=== PATIENT | female | born 1975 | race African-American/Black ===

== ENCOUNTER 2017-01-02 15:04 | Observation (INO) | payer OTHER ==
[~2017-01-02] VITALS: Ht 162.6 cm; Wt 110.0 kg
[~2017-01-02 15:04] MED LIST: HYDR25TA5 PO; LISI-519 PO; MULT-120 PO; OXYC1CAP PO; PANT40TA3 PO; ZOFR4TAB PO
[2017-01-02 15:08] VITALS: BP 149/93; PULSE 89; RESP 15; TEMP 98.6; O2SAT 98
--- NOTE | 2017-01-02 15:26 | PD ---
HPI . Vertigo Chief Complaint: Dizziness Time Seen by Provider: 15:21 Travel History International Travel<30 days: No Contact w/Intl Traveler<30days: No History of Present Illness HPI Patient presents with the acute onset of vertigo associated with vomiting. She states that it is exacerbated by any sort of movement. She reports a positive previous similar history that is been several years ago. She has not taken anything for it prior to arrival. PFSH Past Medical History Anemia: Yes ("IV INFUSIONS EVERY FRIDAY") Arthritis: Yes Blood Disorders: No Heart Rhythm Problems: No Cancer: No Cardiac Catheterization: No Cardiovascular Problems: Yes (HX PERICARDITIS) High Cholesterol: No Congestive Heart Failure: No Diabetes: No Diminished Hearing: No Endocrine: No Gastrointestinal Disorders: Yes (reflux) GERD: Yes Glaucoma: No Genitourinary: No Hepatitis: No Hiatal Hernia: Yes (REPAIRED) Herniated Disk: Yes (L5-S1) Hypertension: Yes Immune Disorder: No Implanted Vascular Access Dvce: Yes Musculoskeletal: Yes (LUMBAR herniated disc, RIGHT KNEE MENISCUS) Neurologic: Yes (migraines) Psychiatric: No Reproductive: No Respiratory: No Immunizations Current: Yes Migraines: Yes Thyroid Disease: No : 1 Para: 1 Ovarian Cysts: Yes Past Surgical History Abdominal Surgery: Yes (GASTRIC SLEEVE) AICD: No Body Medical Devices: CHEST CLAMPS 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) Section: Yes Coronary Artery Bypass Graft: No Endocrine Surgery: No Gynecologic Surgery: Yes ( ) Joint Replacement: No Pacemaker: No Thoracic Surgery: Yes (MEDIASTINAL TUMOR EXCISION) Other Surgery: Yes (MEDIASTINAL TUMOR REMOVAL) Social History Alcohol Use: No Tobacco Use: No Substance Use: No Allergies-Medications (Allergen,Severity, Reaction): Coded Allergies: *MDRO Multi-Drug Resistant Organism (Verified Allergy, Unknown, 10/15/16) MRSA Wound 09/2008 Lactose (Verified Adverse Reaction, Severe, Nausea/Vomiting, 01/02/17) Compazine (Verified Adverse Reaction, Intermediate, DISORIENTED, 10/15/16) Lortab (Verified Adverse Reaction, Intermediate, ITCHING NAUSEA, 10/15/16) Reported Meds & Prescriptions Reported Meds & Active Scripts Active Reported Hydrochlorothiazide 25 Mg Tab 25 Mg PO BID Lisinopril 5 Mg Tab 5 Mg PO DAILY Review of Systems Except as stated in HPI: all other systems reviewed are Neg Eyes: No: Blurred Vision HENT: Positive: Vertigo, No: Headaches Gastrointestinal: Positive: Nausea, Vomiting Physical Exam Narrative GENERAL: Awake and alert. She is sitting very still. SKIN: Warm and dry. CARDIOVASCULAR: Regular rate and rhythm. RESPIRATORY: No accessory muscle use. MUSCULOSKELETAL: No obvious deformities. No edema. NEUROLOGICAL: Awake and alert. No obvious cranial nerve deficits. Motor grossly within normal limits. Normal speech. PSYCHIATRIC: Appropriate mood and affect; insight and judgment normal. Data Data Last Documented VS Vital Signs Date Time Temp Pulse Resp B/P Pulse Ox O2 Delivery O2 Flow Rate FiO2 01/02/17 15:35 17 98 Room Air 01/02/17 15:26 01/02/17 15:08 98.6 89 Orders Lorazepam Inj (Ativan Inj) (01/02/17 15:30) [facility] Medical Decision Making Medical Screen Exam Complete: Yes Emergency Medical Condition: Yes Medical Record Reviewed: Yes (her main medical issue has been hypertension.) Differential Diagnosis Differential diagnosis of dizziness includes but is not limited to vertigo, dehydration, acute blood loss, sepsis, ACS Narrative Course Patient presents with a straightforward history of vertigo stated with nausea and vomiting. She is allergic to Compazine. I have ordered Ativan. Symptoms have improved with Ativan. She has had no further emesis since being treated with Ativan. Diagnosis Primary Impression: Vertigo Patient Instructions: Benign Paroxysmal Positional Vertigo (DC), General Instructions Scripts Meclizine 25 Mg Tab25 Mg PO TID PRN (VERTIGO) #30 TAB Ref 0 Prov:Ana Cristina Wilson MD 01/02/17 Disposition: 01 DISCHARGE HOME Condition: Stable Ana Cristina Wilson MD Jan 02, 2017 15:26
[2017-01-02] MEDS ORDERED: LORazepam 2 MG/ML VIAL IV PUSH ONE (15:30)
[2017-01-02] MEDS ORDERED: MECL-62 PO (16:09)
[2017-01-02] MEDS ORDERED: MECLIZINE HCL 25 MG TAB PO ONE (17:30)
[2017-01-02] MEDS ORDERED: SODIUM CHLOR 0.9% 1000 ML INJ 1,000 ML IV ONE (17:30)
[2017-01-02] MEDS ORDERED: ONDANSETRON HCL 4 MG/2 ML VIAL IV PUSH ONE (17:30)
[2017-01-02 18:01] LABS: AUTOMATED NEUTROPHIL # 8.9 TH/MM3 (1.8-7.7); BASOPHIL % 0.4 % (0.0-2.0); EOSINOPHIL % 0.3 % (0.0-4.0); HEMATOCRIT 35.2 % (35.0-46.0); HEMO FLAGS DIFF FINAL; LYMPH % 11.7 % (9.0-44.0); LYMPHOCYTE # 1.2 TH/MM3 (1.0-4.8); MEAN CELL VOLUME 87.9 FL (80.0-100.0); MEAN CORPUSCULAR HEMOGLOBIN 29.3 PG (27.0-34.0); MEAN CORPUSCULAR HGB CONC 33.4 % (32.0-36.0); MONO % 4.4 % (0.0-8.0); NEUT % 83.2 % (16.0-70.0); PLATELET COUNT 287 TH/MM3 (150-450); RED CELL DISTRIBUTION WIDTH 15.9 % (11.6-17.2); WHITE BLOOD COUNT 10.6 TH/MM3 (4.0-11.0)
--- NOTE | 2017-01-02 18:17 | RADRPT ---
EXAM DATE/TIME: 01/02/2017 18:09 [place] COMPARISON: CT BRAIN W/O CONTRAST, August 13, 2016, 22:52. INDICATIONS : Dizziness today. Nausea and vomiting, RADIATION DOSE: 42.64 CTDIvol (mGy) MEDICAL HISTORY : Hypertension. Cardiovascular disease SURGICAL HISTORY : None. ENCOUNTER: Initial ACUITY: 1 day PAIN SCALE: 0/10 LOCATION: cranial TECHNIQUE: Multiple contiguous axial images were obtained of the head. Using automated exposure control and adj ustment of the mA and/or kV according to patient size, radiation dose was kept as low as reasonably a chievable to obtain optimal diagnostic quality images. FINDINGS: CEREBRUM: The ventricles are normal for age. No evidence of midline shift, mass lesion, hemorrhage or acute in farction. No extra-axial fluid collections are seen. POSTERIOR FOSSA: The cerebellum and brainstem are intact. The 4th ventricle is midline. The cerebellopontine angle i s unremarkable. EXTRACRANIAL: The visualized portion of the orbits is intact. SKULL: The calvaria is intact. No evidence of skull fracture. CONCLUSION: Negative noncontrast head CT. Alvin Ortega MD on January 02, 2017 at 18:15 Board Certified Radiologist. This report was verified electronically.
[2017-01-02 18:31] LABS: ALKALINE PHOSPHATASE 37 U/L (45-117); ALT (GPT) 23 U/L (10-53); ANION GAP 9 MEQ/L (5-15); AST (GOT) 30 U/L (15-37); BICARBONATE 26.4 MEQ/L (21.0-32.0); BLOOD UREA NITROGEN 16 MG/DL (7-18); CHLORIDE 104 MEQ/L (98-107); GLOMERULAR FILTRATION RATE 73 ML/MIN (>89); POTASSIUM 4.4 MEQ/L (3.5-5.1); SODIUM (NA) 139 MEQ/L (136-145); TOTAL BILIRUBIN ADULT 0.3 MG/DL (0.2-1.0)
--- NOTE | 2017-01-02 18:39 | PD ---
Data Data Last Documented VS Vital Signs Date Time Temp Pulse Resp B/P Pulse Ox O2 Delivery O2 Flow Rate FiO2 01/02/17 15:35 17 98 Room Air 01/02/17 15:26 01/02/17 15:08 98.6 89 Orders Lorazepam Inj (Ativan Inj) (01/02/17 15:30) Complete Blood Count With Diff (01/02/17 17:25) Comprehensive Metabolic Panel (01/02/17 17:25) Meclizine (Antivert) (01/02/17 17:30) ^ Insert Iv (01/02/17 17:25) Sodium Chlor 0.9% 1000 Ml Inj (Ns 1000 M (01/02/17 17:30) Ondansetron Inj (Zofran Inj) (01/02/17 17:30) Ct Brain W/O Iv Contrast(Rout) (01/02/17 ) Labs Laboratory Tests Test 01/02/17 17:50 White Blood Count 10.6 TH/MM3 Red Blood Count 4.00 MIL/MM3 Hemoglobin 11.7 GM/DL Hematocrit 35.2 % Mean Corpuscular Volume 87.9 FL Mean Corpuscular Hemoglobin 29.3 PG Mean Corpuscular Hemoglobin 33.4 % Concent Red Cell Distribution Width 15.9 % Platelet Count 287 TH/MM3 Mean Platelet Volume 8.1 FL Neutrophils (%) (Auto) 83.2 % Lymphocytes (%) (Auto) 11.7 % Monocytes (%) (Auto) 4.4 % Eosinophils (%) (Auto) 0.3 % Basophils (%) (Auto) 0.4 % Neutrophils # (Auto) 8.9 TH/MM3 Lymphocytes # (Auto) 1.2 TH/MM3 Monocytes # (Auto) 0.5 TH/MM3 Eosinophils # (Auto) 0.0 TH/MM3 Basophils # (Auto) 0.0 TH/MM3 CBC Comment DIFF FINAL Differential Comment Sodium Level 139 MEQ/L Potassium Level 4.4 MEQ/L Chloride Level 104 MEQ/L Carbon Dioxide Level 26.4 MEQ/L Anion Gap 9 MEQ/L Blood Urea Nitrogen 16 MG/DL Creatinine 1.01 MG/DL Estimat Glomerular Filtration 73 ML/MIN Rate Random Glucose 99 MG/DL Calcium Level 8.4 MG/DL Total Bilirubin 0.3 MG/DL Aspartate Amino Transf 30 U/L (AST/SGOT) Alanine Aminotransferase 23 U/L (ALT/SGPT) Alkaline Phosphatase 37 U/L Total Protein 7.8 GM/DL Albumin 3.6 GM/DL MDM Supervised Visit with YOSEPH: No Narrative Course The patient was up for discharge but was unable to sit up without dry heaving. I went to assess the patient. At rest she has horizontal nystagmus. I don't appreciate any ataxia although she has difficulty cooperating with exam because she has limited ability to keep her eyes open due to severe vertigo. She was given meclizine and Zofran as well as IV hydration. She had already received IV Ativan. She was given a liter of IV hydration and labs were obtained as well as a CT head which was reassuring. I reassessed the patient and she was unable to stand and walk with difficulty getting to a bedside commode. I think the patient requires observation for symptomatic control. I suspect this is peripheral vertigo however if her nystagmus doesn't resolve she may require further neuroimaging. Diagnosis Primary Impression: Vertigo Admitting Information Admitting Physician Requests: Observation Patient Instructions: General Instructions, Benign Paroxysmal Positional Vertigo (DC) Departure Forms: Tests/Procedures Scripts Meclizine 25 Mg Tab25 Mg PO TID PRN (VERTIGO) #30 TAB Ref 0 Prov:Ana Cristina Wilson MD 01/02/17 Disposition: 01 DISCHARGE HOME Condition: Stable Lydia Booker MD Jan 02, 2017 18:39
[2017-01-02 19:07] VITALS: BP 145/80; PULSE 94; RESP 16; O2SAT 99
[2017-01-02] MEDS ORDERED: FAMOTIDINE 20 MG TAB PO ONE (20:15)
[2017-01-02] MEDS ORDERED: RANITIDINE HCL 150 MG TAB PO ONE (20:15)
--- NOTE | 2017-01-02 20:38 | HHI.HP ---
HPI Service [facility] Hospitalists Primary Care Physician Dmitri Wheeler MD, PhD Admission Diagnosis vertigo Chief Complaint: Dizziness, nausea, vomiting, inability to ambulate Travel History International Travel<30 Days: No Contact w/Intl Traveler <30 Da: No Traveled to Known Affected Are: No History of Present Illness 41-year-old Afro-[place] female with hypertension and history of positional vertigo well-known to me from outpatient care presents to the ER via ambulance secondary to significant intractable vertigo which started this morning. She reports that around 8 AM she had a brief episode of vertigo when she was leaving her home but was able to rest and go to work. Around noon she noted that return of vertigo and nearly fell at a local supermarket requiring a bystander to hold her up and support her from falling. She was again able to rest and around 12:30 started having significant intractable vertigo with nausea and vomiting and inability to ambulate independently. She was thus brought to the ER for further evaluation. She was given Antivert, Ativan, IV fluids and Zofran. She was still significantly dizzy to the point that she could not ambulate independently. It was therefore deemed appropriate that she be brought in for observation status for symptom control. It is noted she's had significant vertigo before. CT brain and lab work are reassuring at this point. It is noted the patient took 40 mg of furosemide this morning from a friend due to some lower extremity edema. It is noted but likely somewhat unrelated the patient has had slight vaginal discharge since October when she received IUD placement. She is involved in a new sexual relationship since August 2016 and is reportedly been treated twice for possible bacterial vaginosis during that time. Denies fevers or chills. Denies head trauma. Review of Systems Constitutional: COMPLAINS OF: Fatigue, Dizziness, DENIES: Diaphoretic episodes , Fever, Weight gain, Weight loss, Chills, Change in appetite, Night Sweats Endocrine: DENIES: Abnorml menstrual pattern, Heat/cold intolerance, Polydipsia , Polyuria, Polyphagia Eyes: COMPLAINS OF: Blurred vision, DENIES: Diplopia, Eye inflammation, Eye pain, Vision loss, Photosensitivity, Double Vision Ears, nose, mouth, throat: DENIES: Tinnitus, Hearing loss, Vertigo, Nasal discharge, Oral lesions, Throat pain, Hoarseness, Ear Pain, Running Nose, Epistaxis, Sinus Pain, Toothache, Odynophagia Respiratory: DENIES: Apneas, Cough, Snoring, Wheezing, Hemoptysis, Sputum production, Shortness of breath Cardiovascular: DENIES: Chest pain, Palpitations, Syncope, Dyspnea on Exertion , PND, Lower Extremity Edema, Orthopnea, Claudication Gastrointestinal: COMPLAINS OF: Nausea, Vomiting, DENIES: Abdominal pain, Black stools, Bloody stools, BRB per rectum, Constipation, Diarrhea, GERD, Reflux, Difficulty Swallowing, Anorexia, See HPI Genitourinary: COMPLAINS OF: Vaginal discharge, DENIES: Abnormal vaginal bleeding, Dysmenorrhea, Dyspareunia, Sexual dysfunction, Urinary frequency, Urinary incontinence, Urgency, Hematuria, Dysuria, Nocturia Integumentary: DENIES: Abnormal pigmentation, Pruritus, Rash, Nail changes, Breast masses, Breast skin changes, Nipple discharge Hematologic/lymphatic: DENIES: Bruising, Lymphadenopathy Immunologic/allergic: DENIES: Eczema, Urticaria Neurologic: COMPLAINS OF: Abnormal gait, Poor Balance Psychiatric: COMPLAINS OF: Anxiety Past Family Social History Past Medical History Benign positional vertigo Hypertension Hyperlipidemia Iron deficiency anemia requiring IV iron infusion Leukopenia Obesity B12 and vitamin D deficiency status post bariatric procedure Past Surgical History Laparoscopic gastric sleeve in 2012 Left knee arthroscopy September 2016 with meniscectomy Mediastinum myotomy with teratoma removal approximately 1998 Reported Medications Hydrochlorothiazide 25 mg 1-2 pills per day Lisinopril 5 mg twice a day Pantoprazole 40 mg daily Vitamin D 1000 units a day He took an additional furosemide 40 mg once this morning from a friend due to lower extremity edema Allergies: Coded Allergies: *MDRO Multi-Drug Resistant Organism (Verified Allergy, Unknown, 10/15/16) MRSA Wound 09/2008 Lactose (Verified Adverse Reaction, Severe, Nausea/Vomiting, 01/02/17) Compazine (Verified Adverse Reaction, Intermediate, DISORIENTED, 10/15/16) Lortab (Verified Adverse Reaction, Intermediate, ITCHING NAUSEA, 10/15/16) Family History Family history of coronary artery disease, diabetes, hypertension and lung cancer Father at age 53 of a heart attack Social History Single No tobacco [place] no regular alcohol use Denies illicit drug use 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 She arouses to voice and recognizes me. She is alert and oriented and cooperative to the best of her ability. She does note significant dizziness when she opens her eyes for any prolonged period. SKIN: No rashes, ecchymoses or lesions. Cool and dry. HEAD: Atraumatic. Normocephalic. No temporal or scalp tenderness. EYES: Pupils equal round and reactive. Extraocular motions intact with some noted horizontal and rotatory nystagmus. No scleral icterus. No injection or drainage. ENT: Nose without bleeding, purulent drainage or septal hematoma. Throat without erythema, tonsillar hypertrophy or exudate. Airway patent. NECK: Trachea midline. No JVD or lymphadenopathy. Supple, nontender, no meningeal signs. CARDIOVASCULAR: Regular rate and rhythm without murmurs, gallops, or rubs. RESPIRATORY: Clear to auscultation. Breath sounds equal bilaterally. No wheezes , rales, or rhonchi. GASTROINTESTINAL: Abdomen soft, non-tender, nondistended. No hepato-splenomegaly , or palpable masses. No guarding. MUSCULOSKELETAL: Extremities without clubbing, cyanosis, or edema. No joint tenderness, effusion, or edema noted. No calf tenderness. Moves all extremities well and to command. NEUROLOGICAL: Somewhat lethargic. Difficult to do complete neuro exam given her somewhat sedated state. Finger to nose was normal. Nystagmus as noted above. Could not ambulate about the room just sitting up in the bed caused significant vertigo. Five out of 5 muscle strength in all muscle groups. Normal speech. Laboratory Laboratory Tests Test 01/02/17 17:50 White Blood Count 10.6 Red Blood Count 4.00 Hemoglobin 11.7 Hematocrit 35.2 Mean Corpuscular Volume 87.9 Mean Corpuscular Hemoglobin 29.3 Mean Corpuscular Hemoglobin 33.4 Concent Red Cell Distribution Width 15.9 Platelet Count 287 Mean Platelet Volume 8.1 Neutrophils (%) (Auto) 83.2 Lymphocytes (%) (Auto) 11.7 Monocytes (%) (Auto) 4.4 Eosinophils (%) (Auto) 0.3 Basophils (%) (Auto) 0.4 Neutrophils # (Auto) 8.9 Lymphocytes # (Auto) 1.2 Monocytes # (Auto) 0.5 Eosinophils # (Auto) 0.0 Basophils # (Auto) 0.0 CBC Comment DIFF FINAL Differential Comment Sodium Level 139 Potassium Level 4.4 Chloride Level 104 Carbon Dioxide Level 26.4 Anion Gap 9 Blood Urea Nitrogen 16 Creatinine 1.01 Estimat Glomerular Filtration 73 Rate Random Glucose 99 Calcium Level 8.4 Total Bilirubin 0.3 Aspartate Amino Transf 30 (AST/SGOT) Alanine Aminotransferase 23 (ALT/SGPT) Alkaline Phosphatase 37 Total Protein 7.8 Albumin 3.6 Result Diagram: 01/02/17 17501/02/17 1750 Imaging Last [address] 01/02/17 0000 Signed Impressions: Service Date/Time: December 18:09 - CONCLUSION: Negative noncontrast head CT. Alvin Ortega MD Assessment and Plan Problem List: (1) Vertigo Status: Acute Plan: No significant central findings on exam. Patient appears to be stabilizing somewhat but still has significant vertigo. We'll get physical therapy for vestibular rehabilitation tomorrow. We'll provide benzodiazepine, meclizine, antinausea medication and IV fluids. Hopefully discharge home tomorrow. (2) Gait disturbance Status: Acute Plan: As noted above. Gait had been normal until the significant vertiginous symptoms. (3) Nausea Status: Acute Plan: Provide medication as noted (4) Hypertension Status: Chronic Plan: Blood pressure relatively well controlled at this point. We'll hold medication for now. It is noted that she took an extra furosemide this morning. Code Status Full Discussed Condition With Patient and ER healthcare provider appear Problem Qualifiers (1) Hypertension: Qualified Code: I10 - Essential hypertension Dmitri Wheeler MD PhD Jan 02, 2017 20:38
[2017-01-02] MEDS ORDERED: SODIUM CHLOR 0.9% 1000 ML INJ 1,000 ML IV SCH (20:45)
[2017-01-02] MEDS ORDERED: LORazepam 2 MG/ML VIAL IV PUSH PRN (20:45)
[2017-01-02] MEDS ORDERED: MECLIZINE HCL 25 MG TAB PO PRN (20:45)
[2017-01-02] MEDS ORDERED: ONDANSETRON HCL 4 MG/2 ML VIAL IV PUSH PRN (20:45)
[2017-01-02 23:00] VITALS: BP 129/72; PULSE 85; RESP 16; O2SAT 99
[2017-01-03 00:33] VITALS: BP 136/78; PULSE 84; RESP 21; TEMP 98; O2SAT 98
[2017-01-03 01:04] VITALS: PULSE 90
[2017-01-03 08:18] VITALS: BP 126/94; PULSE 78; RESP 18; TEMP 96.8; O2SAT 97
[2017-01-03] MEDS: MECLIZINE HCL 25 MG TAB PO SCH ×2 (09:31→13:00)
[2017-01-03] MEDS ORDERED: MECL-62 PO ×2 (10:10→12:26)
--- NOTE | 2017-01-03 10:10 | HHI.PR ---
Subjective Remarks Pt reports that the dizziness is getting better. She was able to get out of bed to the bedside commode this morning without much difficulty. She had just one dose of Antivert last night. Denies any further vomiting since last night. Pt is anxious for discharge later today because she is supposed to be flying to [place] tomorrow. Objective Vitals Vital Signs Date Time Temp Pulse Resp B/P Pulse Ox O2 Delivery O2 Flow Rate FiO2 01/03/17 08:18 96.8 78 18 126/94 97 01/03/17 01:04 90 01/03/17 00:33 98.0 84 21 136/78 98 01/02/17 23:00 85 16 129/72 99 Room Air 01/02/17 19:07 94 16 145/80 99 Room Air 01/02/17 15:35 17 98 Room Air 01/02/17 15:26 01/02/17 15:08 98.6 89 15 149/93 98 01/02/17 01/02/17 01/03/17 15:00 23:00 07:00 Intake Total 932 ml Balance 932 ml Intake IV Total 932 ml # Voids 1 Result Diagram: 01/02/17 1750 01/02/17 1750 Other Results Laboratory Tests Test 01/02/17 17:50 White Blood Count 10.6 TH/MM3 Red Blood Count 4.00 MIL/MM3 Hemoglobin 11.7 GM/DL Hematocrit 35.2 % Mean Corpuscular Volume 87.9 FL Mean Corpuscular Hemoglobin 29.3 PG Mean Corpuscular Hemoglobin 33.4 % Concent Red Cell Distribution Width 15.9 % Platelet Count 287 TH/MM3 Mean Platelet Volume 8.1 FL Neutrophils (%) (Auto) 83.2 % Lymphocytes (%) (Auto) 11.7 % Monocytes (%) (Auto) 4.4 % Eosinophils (%) (Auto) 0.3 % Basophils (%) (Auto) 0.4 % Neutrophils # (Auto) 8.9 TH/MM3 Lymphocytes # (Auto) 1.2 TH/MM3 Monocytes # (Auto) 0.5 TH/MM3 Eosinophils # (Auto) 0.0 TH/MM3 Basophils # (Auto) 0.0 TH/MM3 CBC Comment DIFF FINAL Differential Comment Sodium Level 139 MEQ/L Potassium Level 4.4 MEQ/L Chloride Level 104 MEQ/L Carbon Dioxide Level 26.4 MEQ/L Anion Gap 9 MEQ/L Blood Urea Nitrogen 16 MG/DL Creatinine 1.01 MG/DL Estimat Glomerular Filtration 73 ML/MIN Rate Random Glucose 99 MG/DL Calcium Level 8.4 MG/DL Total Bilirubin 0.3 MG/DL Aspartate Amino Transf 30 U/L (AST/SGOT) Alanine Aminotransferase 23 U/L (ALT/SGPT) Alkaline Phosphatase 37 U/L Total Protein 7.8 GM/DL Albumin 3.6 GM/DL Imaging Last [address] 01/02/17 0000 Signed Impressions: Service Date/Time: , January 02, 2017 18:09 - CONCLUSION: Negative noncontrast head CT. Alvin Ortega MD Objective Remarks General: NAD, AAOx3 Chest: CTA Cardiac: Regular Abd: +BS, soft ND/NT Ext: No edema A/P Problem List: (1) Vertigo Status: Acute Plan: - Pt admitted with acute onset of vertigo. - She has had no significant central findings on exam. - Patient appears to be improving with one dose of Antivert last night. - We will schedule the Antivert today and have PT evaluate - Pt may benefit from vestibular rehabilitation as an outpt as they do not provide those services in the hospital. - Cont. antiemetics PRN - IVF - Advance diet as tolerated today - Anticipate discharge to home this afternoon. (2) Gait disturbance Status: Acute Plan: - As noted above. Gait had been normal until the significant vertiginous symptoms. (3) Nausea Status: Acute Plan: - As above. (4) Hypertension Status: Chronic Plan: - Blood pressure relatively well controlled at this point. - Hold Lisinopril for now. - Pt reports that she had been off of her HCTZ and Lisinopril since last weekend because she forgot her pills at a friends house in [place] but they the prescriptions were being mailed to her and should be at her house today. - It is noted that she took a dose of her [id number] furosemide yesterday morning for LE swelling but was having dizziness prior to taking this. Assessment and Plan Patient examined. Assessment and plan formulated with Nicolette Hernandez PA-C. I agree with the above. Pt developed bpv sx's then later took some lasix for swelling on legs. She has hx bpv. had nystagmus on exam last night. advance diet/schedule meclizine. ambulate then d/c home today. Problem Qualifiers (1) Hypertension: Qualified Code: I10 - Essential hypertension Nicolette Hernandez Jan 03, 2017 10:10 Tommy Meyer MD Jan 03, 2017 12:23
--- NOTE | 2017-01-03 10:16 | HHI.DCPOC ---
Discharge Care Plan Diagnosis: (1) Vertigo (2) Hypertension (3) Nausea (4) Gait disturbance (5) Headache Goals to Promote Your Health * To prevent worsening of your condition and complications * To maintain your health at the optimal level Directions to Meet Your Goals Take your medications as prescribed Follow your dietary instruction Follow activity as directed Keep your appointments as scheduled Take your immunizations and boosters as scheduled If your symptoms worsen call your PCP, if no PCP go to Urgent Care Center or Emergency Room Smoking is Dangerous to Your Health. Avoid second hand smoke Call the 24-hour hour crisis hotline for domestic abuse at Nicolette Hernandez Jan 03, 2017 10:16
[2017-01-03 11:44] VITALS: BP 148/95; PULSE 75; RESP 18; O2SAT 95
== END 2017-01-03 15:39 | disposition home or self-care (01) ==
LOC: NEPA 15:04 → NEDA 18:46 → NEDH 22:46 → NEPHCDU 01-03 00:14
PROVIDERS: ADMIT Hospitalist; ATTEND Hospitalist
DX: R42 Dizziness and giddiness (principal); I10 Essential (primary) hypertension; E78.5 Hyperlipidemia, unspecified; E55.9 Vitamin D deficiency, unspecified; E53.8 Deficiency of other specified B group vitamins; R26.9 Unspecified abnormalities of gait and mobility; R11.0 Nausea; E66.9 Obesity, unspecified; Z98.84 Bariatric surgery status; Z68.41 Body mass index [BMI] 40.0-44.9, adult
CPT/HCPCS: 70450; 80053; 85025; 96361; 96374; 96375; G0378; G8987-GP; G8988-GP; J2060; J2405; J7030

== ENCOUNTER 2017-05-29 23:57 | Emergency (ER) | payer OTHER ==
[~2017-05-29] VITALS: Ht 165.1 cm; Wt 119.6 kg
[~2017-05-29 23:57] MED LIST changes: +MECL-62 PO; -MULT-120 PO; -OXYC1CAP PO; -PANT40TA3 PO; -ZOFR4TAB PO
[2017-05-29 23:59] VITALS: BP 182/103; PULSE 87; RESP 16; TEMP 97.8; O2SAT 99
[2017-05-30 00:45] VITALS: BP_SYST 153; BP_SYST 157; BP_DIAS 73; BP_DIAS 91; PULSE 76; RESP 20; O2SAT 100
[2017-05-30] MEDS ORDERED: KETOROLAC TROMETHAMINE 30 MG/ML (IVP) VIAL IV PUSH ONE (00:45)
[2017-05-30] MEDS ORDERED: ONDANSETRON HCL 4 MG/2 ML VIAL IV PUSH ONE (00:45)
[2017-05-30] MEDS ORDERED: HYDROmorphone HCL PF 1 MG/ML VIAL IV PUSH ONE ×2 (00:45→04:15)
[2017-05-30 00:47] LABS: AUTOMATED NEUTROPHIL # 7.7 TH/MM3 (1.8-7.7); BASOPHIL % 0.3 % (0.0-2.0); EOSINOPHIL # 0.1 TH/MM3 (0-0.4); EOSINOPHIL % 0.9 % (0.0-4.0); HEMATOCRIT 36.6 % (35.0-46.0); HEMO FLAGS DIFF FINAL; LYMPH % 17.4 % (9.0-44.0); LYMPHOCYTE # 1.8 TH/MM3 (1.0-4.8); MEAN CELL VOLUME 84.7 FL (80.0-100.0); MEAN CORPUSCULAR HEMOGLOBIN 28.3 PG (27.0-34.0); MEAN CORPUSCULAR HGB CONC 33.4 % (32.0-36.0); MONO % 6.3 % (0.0-8.0); NEUT % 75.1 % (16.0-70.0); PLATELET COUNT 287 TH/MM3 (150-450); RED BLOOD COUNT 4.32 MIL/MM3 (4.00-5.30); RED CELL DISTRIBUTION WIDTH 14.3 % (11.6-17.2); WHITE BLOOD COUNT 10.2 TH/MM3 (4.0-11.0)
[2017-05-30 00:55] LABS: CHLORIDE 103 MEQ/L (98-107); POTASSIUM 3.6 MEQ/L (3.5-5.1); SODIUM (NA) 136 MEQ/L (136-145)
[2017-05-30] MEDS: SODIUM CHLORIDE 0.9% FLUSH 10 ML FLUSH IVF PRN ×2 (00:57→04:28)
[2017-05-30 00:58] LABS: ANION GAP 6 MEQ/L (5-15); BICARBONATE 27.1 MEQ/L (21.0-32.0); BLOOD UREA NITROGEN 17 MG/DL (7-18); MAGNESIUM 1.9 MG/DL (1.5-2.5)
[2017-05-30 01:00] LABS: APTT (PATIENT) 29.4 SEC (24.3-30.1); INTERNATIONAL NORMALIZED RATIO 0.9 RATIO; PROTHROMBIN TIME - PATIENT 9.9 SEC (9.8-11.6)
[2017-05-30 01:01] LABS: GLOMERULAR FILTRATION RATE 83 ML/MIN (>89)
[2017-05-30 01:10] LABS: CREATINE KINASE 87 U/L (26-192)
--- NOTE | 2017-05-30 01:32 | PD ---
HPI Chief Complaint: Pain: Acute or Chronic Time Seen by Provider: 00:38 Travel History International Travel<30 days: No Contact w/Intl Traveler<30days: No Traveled to known affect area: No History of Present Illness HPI 41 year-old female presents to the emergency department for complaint of severe neck pain that she regards as excruciating. Patient states that pain is left- sided and radiates into the head. Patient denies any visual disturbance or visual loss. Patient has history of headache but states that this is not typical. Patient denies upper or lower extremity numbness tingling or weakness. There has been no bladder or bowel dysfunction. No saddle anesthesia. No gait disturbance. No change in mentation. No speech disturbance. No facial droop. Patient has developed indigestion and heartburn since onset of left posterior neck pain. Patient denies any specific exercise injury or manipulation prior to onset of symptoms. The patient rates pain 10 over 10 in intensity. Patient was seen in the emergency department at [facility] earlier today and given prescription for ibuprofen and muscle relaxant without relief. Patient states that x-ray of the neck was performed revealed no acute bony abnormality. Patient's had no recent febrile illness or respiratory illness. Patient reports that any type of movement increases pain but that even without movement she has severe left-sided pain. Patient has history of hypertension but only takes HCTZ has been off antihypertensive medication since significant weight loss after having a gastric sleeve procedure performed. 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; family history of premature onset heart disease and father; no tobacco use; nursing notes reviewed Anemia: Yes Arthritis: Yes Blood Disorders: No Heart Rhythm Problems: No Cancer: No Cardiac Catheterization: No Cardiovascular Problems: Yes (HX PERICARDITIS) High Cholesterol: No Chemotherapy: No Congestive Heart Failure: No Diabetes: No Diminished Hearing: No Endocrine: No Gastrointestinal Disorders: Yes (REFLUX, GASTRITIS) GERD: Yes Glaucoma: No Genitourinary: No Hepatitis: No Hiatal Hernia: Yes (REPAIRED) Heparin Induced Thrombocytopen: No Herniated Disk: Yes (L5-S1) Hypertension: Yes Immune Disorder: No Implanted Vascular Access Dvce: Yes Medical other: Yes (DDD,KERTICONUS BILATERAL EYES) Musculoskeletal: Yes (LUMBAR herniated disc, RIGHT KNEE MENISCUS) Neurologic: Yes Psychiatric: No Reproductive: No Respiratory: No Immunizations Current: Yes Migraines: Yes Radiation Therapy: No Thyroid Disease: No Tetanus Vaccination: Unknown ?: Unknown : 1 Para: 1 Ovarian Cysts: Yes Past Surgical History Abdominal Surgery: Yes (GASTRIC SLEEVE) AICD: No Body Medical Devices: CHEST CLAMPS 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) Section: Yes Coronary Artery Bypass Graft: No Endocrine Surgery: No Gynecologic Surgery: Yes ( ) Joint Replacement: No Pacemaker: No Thoracic Surgery: Yes (MEDIASTINAL TUMOR EXCISION) Other Surgery: Yes (MEDIASTINAL TUMOR REMOVAL) Family History Family Myocardial Infarction: Yes Social History Alcohol Use: No Tobacco Use: No Substance Use: No Allergies-Medications (Allergen,Severity, Reaction): Coded Allergies: *MDRO Multi-Drug Resistant Organism (Verified Allergy, Unknown, 10/15/16) MRSA Wound 09/2008 Lactose (Verified Adverse Reaction, Severe, Nausea/Vomiting, 01/02/17) Compazine (Verified Adverse Reaction, Intermediate, DISORIENTED, 10/15/16) Lortab (Verified Adverse Reaction, Intermediate, ITCHING NAUSEA, 10/15/16) Reported Meds & Prescriptions Reported Meds & Active Scripts Active Reported Meloxicam 15 Mg Tab 15 Mg PO DAILY Ibuprofen 600 Mg Tab 600 Mg PO Q6H PRN Hydrochlorothiazide 25 Mg Tab 25 Mg PO BID Review of Systems Except as stated in HPI: all other systems reviewed are Neg General / Constitutional: No: Fever, Chills Eyes: No: Diploplia, Blurred Vision, Photophobia HENT: Positive: Headaches, Neck Stiffness, Neck Pain Cardiovascular: No: Chest Pain or Discomfort Respiratory: No: Shortness of Breath Gastrointestinal: Positive: Indigestion, No: Nausea, Vomiting, Abdominal Pain Genitourinary: No: Flank Pain Musculoskeletal: Positive: Limited ROM, No: Myalgias, Arthralgias Skin: No Rash (neck) Neurologic: Positive: Headache, No: Weakness, Dizziness, Syncope, Focal Abnormalities, Coordination Problem Psychiatric: Positive: Anxiety Endocrine: No: Heat Intolerance Hematologic/Lymphatic: No: Easy Bruising Physical Exam Narrative GENERAL: Well-developed well-nourished female in obvious discomfort and appears in distress secondary to pain but no respiratory distress; GCS 15 SKIN: Warm and dry. HEAD: Atraumatic. Normocephalic. EYES: Pupils equal and round. No scleral icterus. No injection or drainage. ENT: No nasal bleeding or discharge. Mucous membranes pink and moist. NECK: Trachea midline. No JVD. Patient with out range of motion of the neck secondary to severe left-sided neck pain without induration erythema increased warmth fluctuance or mass tenderness to palpation along the left paracervical musculature and at the base of the skull. No tenderness to direct palpation along the cervical spine. No left-sided postauricular mass or tenderness to palpation CARDIOVASCULAR: Regular rate and rhythm. RESPIRATORY: No accessory muscle use. Clear to auscultation. Breath sounds equal bilaterally. GASTROINTESTINAL: Abdomen soft, non-tender, nondistended. Hepatic and splenic margins not palpable. MUSCULOSKELETAL: Extremities without clubbing, cyanosis, or edema. No obvious deformities. NEUROLOGICAL: Awake and alert. No obvious cranial nerve deficits. Motor grossly within normal limits. Five out of 5 muscle strength in the arms and legs. Normal speech. PSYCHIATRIC: Appropriate mood and affect; insight and judgment normal. Data Data Last Documented VS Vital Signs Date Time Temp Pulse Resp B/P Pulse Ox O2 Delivery O2 Flow Rate FiO2 05/30/17 02:00 76 20 147/76 98 05/30/17 00:45 Room Air 05/29/17 23:59 97.8 Orders Electrocardiogram (05/30/17 00:38) Basic Metabolic Panel (Bmp) (05/30/17 00:38) Ckmb (Isoenzyme) Profile (05/30/17 00:38) Complete Blood Count With Diff (05/30/17 00:38) Magnesium (Mg) (05/30/17 00:38) Prothrombin Time / Inr (Pt) (05/30/17 00:38) Act Partial Throm Time (Ptt) (05/30/17 00:38) Troponin I (05/30/17 00:38) Chest, Single Ap (05/30/17 00:38) Ecg Monitoring (05/30/17 00:38) Bilateral Bp Monitoring (05/30/17 00:38) Iv Access Insert/Monitor (05/30/17 00:38) Oximetry (05/30/17 00:38) Oxygen Administration (05/30/17 00:38) Sodium Chloride 0.9% Flush (Ns Flush) (05/30/17 00:45) Ketorolac Inj (Toradol Inj) (05/30/17 00:45) Ondansetron Inj (Zofran Inj) (05/30/17 00:45) Hydromorphone Pf Inj (Dilaudid Pf Inj) (05/30/17 00:45) Cta Neck W Iv Contrast W 3d (05/30/17 ) Ed Urine Pregnancytest Poc (05/30/17 01:43) Iohexol 350 Inj (Omnipaque 350 Inj) (05/30/17 03:10) Dexamethasone Inj (Decadron Inj) (05/30/17 04:15) Hydromorphone Pf Inj (Dilaudid Pf Inj) (05/30/17 04:15) Labs Laboratory Tests Test 05/30/17 00:40 White Blood Count 10.2 TH/MM3 Red Blood Count 4.32 MIL/MM3 Hemoglobin 12.2 GM/DL Hematocrit 36.6 % Mean Corpuscular Volume 84.7 FL Mean Corpuscular Hemoglobin 28.3 PG Mean Corpuscular Hemoglobin 33.4 % Concent Red Cell Distribution Width 14.3 % Platelet Count 287 TH/MM3 Mean Platelet Volume 7.7 FL Neutrophils (%) (Auto) 75.1 % Lymphocytes (%) (Auto) 17.4 % Monocytes (%) (Auto) 6.3 % Eosinophils (%) (Auto) 0.9 % Basophils (%) (Auto) 0.3 % Neutrophils # (Auto) 7.7 TH/MM3 Lymphocytes # (Auto) 1.8 TH/MM3 Monocytes # (Auto) 0.6 TH/MM3 Eosinophils # (Auto) 0.1 TH/MM3 Basophils # (Auto) 0.0 TH/MM3 CBC Comment DIFF FINAL Differential Comment Prothrombin Time 9.9 SEC Prothromb Time International 0.9 RATIO Ratio Activated Partial 29.4 SEC Thromboplast Time Sodium Level 136 MEQ/L Potassium Level 3.6 MEQ/L Chloride Level 103 MEQ/L Carbon Dioxide Level 27.1 MEQ/L Anion Gap 6 MEQ/L Blood Urea Nitrogen 17 MG/DL Creatinine 0.90 MG/DL Estimat Glomerular Filtration 83 ML/MIN Rate Random Glucose 91 MG/DL Calcium Level 8.8 MG/DL Magnesium Level 1.9 MG/DL Total Creatine Kinase 87 U/L Troponin I LESS THAN 0.02 NG/ML MDM Medical Decision Making Medical Screen Exam Complete: Yes Emergency Medical Condition: Yes Medical Record Reviewed: Yes Interpretation(s) EKG normal sinus rhythm rate [address] elevation or injury pattern change or ectopy noted poc hcg:negative CBC & BMP Diagram 05/30/17 00:40 Vital Signs Date Time Temp Pulse Resp B/P Pulse Ox O2 Delivery O2 Flow Rate FiO2 05/30/17 00:45 76 20 153/91 100 Room Air 157/73 05/30/17 00:44 100 Room Air 05/30/17 00:36 20 05/29/17 23:59 97.8 87 16 182/103 99 Troponin I: Less than 0.02, not elevated; CK: 87, not elevated Chest x-ray: Median sternotomy no lobar infiltrate effusion or pneumothorax Last Impressions Chest X-Ray 05/30/17 0038 Signed Impressions: Service Date/Time: Tuesday, May 30, 2017 01:01 - CONCLUSION: 1. No acute cardiopulmonary disease. Eduardo Christensen MD Neck CTA 05/30/17 0000 Signed Impressions: Service Date/Time: Tuesday, May 30, 2017 02:01 - CONCLUSION: 1. There is 0-10%% stenosis at the origin of the carotid arteries bilaterally. 2. 14 mm nodule right lobe of the thyroid. Ultrasound examination is recommended if clinically indicated. Eduardo Christensen MD Differential Diagnosis Musculoskeletal pain, degenerative disc disease, trapezius spasm, torticollis, uncontrolled hypertension, migraine; also to consider but unlikely vertebral artery dissection/aneurysm Narrative Course IV access obtained specimens collected and sent for resulting EKG performed reveals no acute injury pattern Patient administered Zofran 4 mg IV Toradol 30 mg IV and Dilaudid 1 mg IV Review of medical records indicates patient with recent admission for vertigo 2016 CT brain noncontrast reveals no acute process; 08/15/16 patient had MRI of the brain and MRA of the brain which revealed no acute abnormalities were essentially normal studies. Patient's had previous MRI of the cervical spine showed mild degenerative changes but no acute process. @1:32 AM patient reports pain somewhat improved but still very painful and causing posterior headache CTA neck ordered to evaluate for dissection @ 3:30 am CTA results pending --pain improved now 12/06 @ 4:20 am recurrent left sided posterior neck pain additional medication administered-decadron 8 mg IV and dilaudid 0.5 mg IV At 5:30 AM patient reports that pain has markedly improved; patient is desirous of being discharged to home; patient aware of medication adjustments; patient is encouraged to follow-up with her primary care provider; patient encouraged to return to the emergency department for any concerns or change in condition Diagnosis Primary Impression: Neck pain, acute Additional Impression: Hypertension Qualified Code: I10 - Essential hypertension Referrals: Primary Care Physician 1 day Patient Instructions: Narcotic given in the ED, General Instructions Additional Instructions: Start steroid/Medrol Dosepak daily to taper over the next few days; while taking this medication do not take ibuprofen/Motrin/Advil or meloxicam or Aleve/ Naprosyn/naproxen Start as tolerated Percocet 5/325 for pain every 6 hours as needed per prescription directions--if taking this medication do not take any other narcotic pain medication or Ultram/tramadol; be aware this medication may impair judgment, delay reaction time, increase risk for fall, or cause constipation; do not drive vehicle while taking this medication Take Norvasc for hypertension monitor blood pressures closely while on steroid therapy May take Zofran as prescribed as needed for nausea and/or vomiting due to history of GI sensitivity to narcotic pain medications Use moist heat to neck area for comfort purposes Follow-up with primary care provider call office to schedule follow-up appointment Return to the emergency department for any concerns or change in condition No work times one day Med/Other Pt SpecificInfo: Prescription(s) given Scripts Amlodipine (Norvasc)5 Mg Tab5 Mg PO DAILY #15 TAB Ref 0 Prov:Jackie Velasco MD 05/30/17 Ondansetron Odt (Zofran Odt)4 Mg Tab4 Mg SL Q6HR PRN (Nausea/Vomiting) #10 TAB Ref 0 Prov:Jackie Velasco MD 05/30/17 Oxycodone-Acetaminophen (Percocet)5-325 mg Tab1 Tab PO Q6H PRN (PAIN) #10 TAB Ref 0 Prov:Jackie Velasco MD 05/30/17 Methylprednisolone Dosepak (Medrol Dosepak)4 Mg Dspk4 Mg PO DIRECTED #1 DSPK Ref 0 Per Pharmacist direction Prov:Jackie Velasco MD 05/30/17 Disposition: 01 DISCHARGE HOME Condition: Stable Jackie Velasco MD May 30, 2017 01:32
[2017-05-30] MEDS ORDERED: IBUP-232 PO (01:43)
[2017-05-30] MEDS ORDERED: MELO-1 PO (01:43)
[2017-05-30 01:58] VITALS: BP 147/76; PULSE 72; RESP 20
[2017-05-30 02:00] VITALS: BP 147/76; PULSE 76; RESP 20; O2SAT 98
--- NOTE | 2017-05-30 02:07 | RADRPT ---
EXAM DATE/TIME: 05/30/2017 01:01 [facility] COMPARISON: CHEST SINGLE AP, July 31, 2013, 12:33. INDICATIONS : Left sided chest pain starting today MEDICAL HISTORY : None. SURGICAL HISTORY : Mediastinal tumor removal ENCOUNTER: Initial ACUITY: 1 day PAIN SCORE: 10/10 LOCATION: Left chest FINDINGS: The cardiac silhouette is normal in transverse diameter. The lungs are free of acute parenchymal opac ity. No effusions are identified. Median sternotomy wires are present. CONCLUSION: 1. No acute cardiopulmonary disease. Eduardo Christensen MD on May 30, 2017 at 2:04 Board Certified Radiologist. This report was verified electronically.
[2017-05-30] MEDS ORDERED: IOHEXOL 350 MG/ML 10 ML VIAL (for RAD DIAG) IV ONE (03:10)
--- NOTE | 2017-05-30 03:51 | RADRPT ---
EXAM DATE/TIME: 05/30/2017 02:01 [facility] COMPARISON: No previous studies available for comparison. INDICATIONS : Neck and jaw pain for 2 days. Rule out left dissection. IV CONTRAST: 99 cc Omnipaque 350 (iohexol) IV RADIATION DOSE: 15.46 CTDIvol (mGy) MEDICAL HISTORY : Gastroesophageal reflux disease. Hypertension. Hernia, hiatal. SURGICAL HISTORY : None. Gastric sleeve ENCOUNTER: Initial ACUITY: 2 days PAIN SCALE: 8/10 LOCATION: Left neck Elevated flow velocities and ICA/CCA ratios have been found to correlate with increased degrees of vessel stenosis, calculated as percentage of diameter relative to a normal segment of distal ICA/CCA. TECHNIQUE: Volumetric scanning was performed using a multirow detector CT scanner. The data was post processed with a variety of visualization algorithms including full-volume maximum intensity projection, multip lanar sliding thin-slab reformation, curved-planar reformation, and surface-rendering techniques. Us ing automated exposure control and adjustment of the mA and/or kV according to patient size, radiatio n dose was kept as low as reasonably achievable to obtain optimal diagnostic quality images. DICOM f ormat image data is available electronically for review and comparison. FINDINGS: No abnormality is identified within the lung apices. There is normal origin of vessels from the arch without evidence of proximal stenosis. Vertebral arteries are codominant. There is a 14 mm nodule in the right lobe of the thyroid gland. Ultrasound examination is recommended if clinically indicated. Examination of the right common carotid artery demonstrates the vessel to be widely patent. There is 0-10% stenosis at your chin up the right internal carotid artery More distally the cervical internal carotid artery is intact. Examination of the left common carotid artery demonstrates the vessel to be widely patent. There is 0 -10% stenosis at the origin of the left internal carotid artery. More distally the cervical internal carotid artery is intact. Percent stenosis is calculated using the diameter of the stenotic region over the diameter of the nor mal distal internal carotid artery. CONCLUSION: 1. There is 0-10% stenosis at the origin of the carotid arteries bilaterally. 2. 14 mm nodule right lobe of the thyroid. Ultrasound examination is recommended if clinically indica adriana. Eduardo Christensen MD on May 30, 2017 at 3:47 Board Certified Radiologist. This report was verified electronically.
[2017-05-30 04:00] VITALS: BP 171/88; PULSE 74; RESP 20; O2SAT 97
[2017-05-30] MEDS ORDERED: DEXAMETHASONE SOD PHOS 4 MG/ML VIAL IV PUSH ONE (04:15)
[2017-05-30] MEDS ORDERED: MEDR4PAK PO (05:34)
[2017-05-30] MEDS ORDERED: ZOFR4TAB3 SL (05:34)
[2017-05-30] MEDS ORDERED: PERC5TAB12 PO (05:34)
[2017-05-30] MEDS ORDERED: AMLO5 PO (05:34)
[2017-05-30 05:57] VITALS: BP 175/87
--- NOTE | 2017-05-30 12:07 | EKG ---
Date Performed: 05/30/2017 Time Performed: 01:06:22 PTAGE: 41 years EKG: Sinus rhythm NORMAL ECG PREVIOUS TRACING : 03/08/2013 15.14 Compared to the prior study, nonspecific T-wave changes hav e resolved. DOCTOR: Eduardo Reyes Interpretating Date/Time 05/30/2017 12:05:28
== END 2017-05-30 06:04 | disposition home or self-care (01) ==
LOC: PHED 23:57
DX: M54.2 Cervicalgia (principal); I10 Essential (primary) hypertension; R07.9 Chest pain, unspecified; Z79.899 Other long term (current) drug therapy
CPT/HCPCS: 70498; 71010; 80048; 82550; 83735; 84484; 84703; 85025; 85610; 85730; 93005; 96374; 96375; 96376; 99285; J1100; J1170; J1885; J2405; Q9967

== ENCOUNTER 2018-03-13 02:32 | Emergency (ER) | payer OTHER ==
[~2018-03-13] VITALS: Ht 162.6 cm; Wt 110.0 kg
[~2018-03-13 02:32] MED LIST changes: +AMLO5 PO; +IBUP-232 PO; -LISI-519 PO; -MECL-62 PO; +MEDR4PAK PO; +MELO15TA20 PO; +PERC5TAB12 PO; +ZOFR4TAB3 SL
[2018-03-13 02:47] VITALS: BP 132/73; PULSE 90; RESP 18; TEMP 97.7; O2SAT 99
[2018-03-13] MEDS ORDERED: ORPHENADRINE INJ 60 MG/2 ML AMP IM ONE (03:15)
[2018-03-13] MEDS ORDERED: KETOROLAC TROMETHAMINE 60 MG/2 ML (IM) VIAL IM ONE (03:15)
[2018-03-13] MEDS ORDERED: ROBA750T PO (03:16)
--- NOTE | 2018-03-13 03:16 | PD ---
HPI Chief Complaint: Pain: Acute or Chronic Time Seen by Provider: 03:05 Travel History International Travel<30 days: No Contact w/Intl Traveler<30days: No Traveled to known affect area: No History of Present Illness HPI 22-year-old female complains of right leg pain and muscle spasm. Patient status post arthroscopic surgery yesterday. Patient states that she has been taking oxycodone for pain. Patient states that she had persistent pain and muscle spasm in the right leg despite taking oxycodone. Patient denies any any new injury. Patient states the pain is spasm pain and sharp pain localized to the right leg and right knee. Patient denies any pain radiation. Patient states the pain is worse with movement. On a scale from 1-10 the pain is a 10. Patient has history of GERD, hypertension, migraine, ovarian cyst, anemia, pericarditis, gastritis, chronic low back pain. PFSH Past Medical History Anemia: Yes Arthritis: Yes Blood Disorders: No Heart Rhythm Problems: No Cancer: No Cardiac Catheterization: No Cardiovascular Problems: Yes (HX PERICARDITIS) High Cholesterol: No Chemotherapy: No Congestive Heart Failure: No Diabetes: No Diminished Hearing: No Endocrine: No Gastrointestinal Disorders: Yes (REFLUX, GASTRITIS) GERD: Yes Glaucoma: No Genitourinary: No Hepatitis: No Hiatal Hernia: Yes (REPAIRED) Heparin Induced Thrombocytopen: No Herniated Disk: Yes (L5-S1) Hypertension: Yes Immune Disorder: No Implanted Vascular Access Dvce: Yes Medical other: Yes (DDD,KERTICONUS BILATERAL EYES) Musculoskeletal: Yes (LUMBAR herniated disc, RIGHT KNEE MENISCUS) Neurologic: Yes Psychiatric: No Reproductive: No Respiratory: No Immunizations Current: Yes Migraines: Yes Radiation Therapy: No Thyroid Disease: No ?: Not : 1 Para: 1 Ovarian Cysts: Yes Past Surgical History Abdominal Surgery: Yes (GASTRIC SLEEVE) AICD: No Body Medical Devices: CHEST CLAMPS 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) Section: Yes Coronary Artery Bypass Graft: No Endocrine Surgery: No Gynecologic Surgery: Yes ( ) Joint Replacement: No Pacemaker: No Thoracic Surgery: Yes (MEDIASTINAL TUMOR EXCISION) Other Surgery: Yes (MEDIASTINAL TUMOR REMOVAL) Family History Family Myocardial Infarction: Yes (FATHER FROM MASSIVE [place] AGE 53) Social History Alcohol Use: No Tobacco Use: No Substance Use: No Allergies-Medications (Allergen,Severity, Reaction): Coded Allergies: *MDRO Multi-Drug Resistant Organism (Verified Allergy, Unknown, 10/15/16) MRSA Wound 09/2008 lactose (Unverified Adverse Reaction, Severe, Nausea/Vomiting, 03/13/18) acetaminophen (Unverified Adverse Reaction, Intermediate, ITCHING NAUSEA, 06/10/17) hydrocodone (Unverified Adverse Reaction, Intermediate, ITCHING NAUSEA, ) prochlorperazine (Unverified Adverse Reaction, Intermediate, DISORIENTED, 03/13/18) Reported Meds & Prescriptions Reported Meds & Active Scripts Active Norvasc (Amlodipine Besylate) 5 Mg Tab 5 Mg PO DAILY Percocet (Oxycodone-Acetaminophen) 5-325 mg Tab 1 Tab PO Q6H PRN Reported Hydrochlorothiazide 25 Mg Tab 25 Mg PO BID Review of Systems General / Constitutional: No: Fever Eyes: No: Visual changes HENT: No: Headaches Cardiovascular: No: Chest Pain or Discomfort Respiratory: No: Shortness of Breath Gastrointestinal: No: Abdominal Pain Genitourinary: No: Dysuria Musculoskeletal: Positive: Pain Skin: No Rash Neurologic: No: Weakness Psychiatric: No: Depression Endocrine: No: Polydipsia Hematologic/Lymphatic: No: Easy Bruising Physical Exam Narrative GENERAL: Well-nourished, well-developed patient. SKIN: Focused skin assessment warm/dry. HEAD: Normocephalic. EYES: No scleral icterus. No injection or drainage. NECK: Supple, trachea midline. No JVD or lymphadenopathy. CARDIOVASCULAR: Regular rate and rhythm without murmurs, gallops, or rubs. RESPIRATORY: Breath sounds equal bilaterally. No accessory muscle use. GASTROINTESTINAL: Abdomen soft, non-tender, nondistended. MUSCULOSKELETAL: No cyanosis, or edema. BACK: Nontender without obvious deformity. No CVA tenderness. Right knee with dressing in place. Patient has moderate diffuse tenderness over the right thigh area. No redness no heat noted. Sensory motor function distally intact. Data Data Last Documented VS Vital Signs Date Time Temp Pulse Resp B/P (MAP) Pulse Ox O2 Delivery O2 Flow Rate FiO2 03/13/18 02:47 97.7 90 18 132/73 (92) 99 Orders Orders Ketorolac Inj (Toradol Inj) (03/13/18 03:15) Orphenadrine Inj (Norflex Inj) (03/13/18 03:15) [facility] Medical Decision Making Medical Screen Exam Complete: Yes Emergency Medical Condition: Yes Differential Diagnosis Differential diagnosis including acute exacerbation of right leg pain after the knee surgery. Narrative Course 42-year-old female with right leg pain. Status post right knee arthroscopic surgery. Patient has oxycodone at home for pain. Norflex 60 mg IM. Toradol 60 mg IM. Diagnosis Primary Impression: Right knee pain Qualified Codes: M25.561 - Pain in right knee Additional Impression: Status post arthroscopic surgery of right knee Patient Instructions: General Instructions Additional Instructions: Continue oxycodone for pain. Robaxin as directed. Follow-up with personal physician. Return if worse. Med/Other Pt SpecificInfo: Prescription(s) given Scripts Methocarbamol (Robaxin) 750 Mg Tab 750 MG PO QID for Muscle Spasm, #40 TAB 0 Refills Prov: Rajan Garudno MD 03/13/18 Disposition: 01 DISCHARGE HOME Condition: Stable Rajan Garduno MD March 13, 2018 03:16
== END 2018-03-13 04:51 | disposition home or self-care (01) ==
LOC: NEPC 02:32
DX: M25.561 Pain in right knee (principal); G89.18 Other acute postprocedural pain
CPT/HCPCS: 96372; 99283; J1885; J2360